=== PATIENT | female | born 2000 | race Caucasian/White ===

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

== ENCOUNTER 2021-08-26 | Emergency (ER) | payer MEDICAID, OTHER ==
[~2021-08-26] VITALS: Ht 152.4 cm; Wt 75.3 kg
--- NOTE | 2021-08-26 00:11 | NUR ---
CALLED FOR PT NO ANSWER
[2021-08-26 00:23] VITALS: BP 101/60
--- NOTE | 2021-08-26 00:27 | NUR ---
PT TO LOBBY
--- NOTE | 2021-08-26 00:52 | NUR ---
HEART TONES NOTED AT LEFT SIDE OF THE PELVIS GOING AT 169 BPM
[2021-08-26] MEDS ORDERED: ONDANSETRON 4 MG ODT PO ONE (03:05)
[2021-08-26] MEDS ORDERED: ONDA8TAB87 PO (03:31)
--- NOTE | 2021-08-26 03:46 | NUR ---
21 y/o f BIB MOTHER FROM HOME FOR UPPER ABD/ CHEST PAIN THAT RADIATES TO BACK . PAIN 10/10 THAT FEEL LIKE PRESSURE / SQUEEZING. PT STATES NAUSEA AND VOMITING. DENIES DIARRHEA; SKIN IS PINK/WARM/DRY; AAOX4 WITH EVEN AND STEADY GAIT; LUNGS CLEAR BL; HR EVEN AND REGULAR; PT DENIES ANY FEVER . MANAGER DENTAL ALSO COMPLAINS OF CP, SOB, AT THIS TIME; VSS; PATIENT POSITIONED FOR COMFORT; HOB ELEVATED; BEDRAILS UP X2; BED DOWN. ER MD MADE AWARE OF PT STATUS. PMH: 16 WEEKS RX: PRENATALS NKA
[2021-08-26 04:25] VITALS: BP 105/61
--- NOTE | 2021-08-26 04:25 | NUR ---
The patient's care was reviewed and supervised by Genna Pickett RN.
--- NOTE | 2021-08-26 04:25 | NUR ---
Patient discharged with v/s stable. Written and verbal after care instructions given and explained. Patient alert, oriented and verbalized understanding of instructions. Ambulatory with steady gait. All questions addressed prior to discharge. ID band removed. Patient advised to follow up with PMD. Rx of ZOFRAN given. Opportunity to ask questions provided and answered.
== END 2021-08-26 04:25 | disposition home or self-care (01) ==
LOC: MED
DX: O26.891 Other specified pregnancy related conditions, first trimester (principal); R10.13 Epigastric pain; O21.8 Other vomiting complicating pregnancy; Z3A.17 17 weeks gestation of pregnancy
CPT/HCPCS: 81002; 81025; 99283; Q0162

== ENCOUNTER 2021-10-01 16:40 | Observation (INO) | payer MEDICAID ==
[~2021-10-01] VITALS: Ht 152.4 cm; Wt 77.1 kg
[~2021-10-01 16:40] MED LIST changes: -BUSPAR5 MG PO; +ONDA8TAB87 PO; -VISTARIL25 MG PO; -ZOLOFT25 MG PO
[2021-10-01] MEDS ORDERED: PNV1TABL5 PO (17:25)
[2021-10-01 17:27] VITALS: BP 106/51
[2021-10-01] MEDS ORDERED: LACTATED RINGERS 1,000 ML IV SCH (18:15)
[2021-10-01 18:51] LABS: BASOPHILS % (AUTO) 0.1 % (0.0-2.0); EOSINOPHILS # (AUTO) 0.1 K/uL (0-0.4); EOSINOPHILS % (AUTO) 0.6 % (0.0-4.0); HEMATOCRIT 32.8 % (36-48); HEMOGLOBIN 10.8 g/dL (12.0-16.0); LYMPHOCYTES # (AUTO) 1.9 K/uL (2.5-16.5); MEAN CORPUSCULAR HEMOGLOBIN 30 pg (27-31); MEAN CORPUSCULAR HGB CONC 33 g/dL (33-37); MEAN CORPUSCULAR VOLUME 91.2 fL (80-94); MONOCYTES # (AUTO) 0.9 K/uL (0.8-1.0); MONOCYTES % (AUTO) 6.9 % (1.7-9.3); NEUTROPHILS # (AUTO) 9.9 K/uL (1.8-7.7); NEUTROPHILS % (AUTO) 77.4 % (42.2-75.2); PLATELET COUNT (AUTO) 248 K/uL (140-450); RED CELL DISTRIBUTION WIDTH 12.7 % (11.6-13.7); WHITE BLOOD COUNT (AUTO) 12.7 K/uL (4.8-10.8)
[2021-10-01 19:27] LABS: APPEARANCE,URINE SL CLOUDY (CLEAR); BILIRUBIN,URINE NEGATIVE (NEGATIVE); BLOOD, URINE TRACE-L (NEGATIVE); COLOR,URINE YELLOW (YELLOW); LEUKOCYTE ESTERASE ,URINE TRACE (NEGATIVE); NITRITE, URINE NEGATIVE (NEGATIVE); PH,URINE 6.5 (5.0-9.0); UGLUCOSE NEGATIVE (NEGATIVE)
[2021-10-01 19:30] LABS: ALBUMIN 2.7 g/dL (3.4-5.0); ANION GAP 13.5 (8-16); CARBON DIOXIDE 22.1 mmol/L (21-32); CREATININE 0.4 mg/dL (0.6-1.3); POTASSIUM 3.6 mmol/L (3.5-5.1); TOTAL BILIRUBIN 0.2 mg/dL (0.0-1.0)
[2021-10-01 20:44] LABS: RBC,URINE 0-5 /HPF (0-5)
== END 2021-10-01 22:35 | disposition home or self-care (01) ==
LOC: MLD 16:40
PROVIDERS: ADMIT Obstetrics & Gynecology; ATTEND Obstetrics & Gynecology
DX: O26.892 Other specified pregnancy related conditions, second trimester (principal); Z20.822 Contact with and (suspected) exposure to COVID-19; R07.89 Other chest pain; R10.12 Left upper quadrant pain; Z3A.23 23 weeks gestation of pregnancy
CPT/HCPCS: 36415; 59025; 76817; 80053; 81001; 85025; 87086; 87426; 96360; 96361; G0378; J7120; Q0092